=== PATIENT | female | born 1960 | race Two or more races ===

== ENCOUNTER 2025-03-03 18:52 | Emergency (ER) | payer MEDICAID, SELFPAY ==
[2025-03-03 19:51] VITALS: BP 163/68; PULSE 78; RESP 20; TEMP 36.6; O2SAT 96
--- NOTE | 2025-03-03 19:59 | XR_ITS ---
Examination: Abdomen AP single view Technique: AP portable supine abdomen, single view Exam date and time: March 03, 2025, 2005 hrs. Indications: No bowel movement beginning 2 days ago. Findings: Large amounts of air and stool throughout the entire colon No obstruction No free air Prominent osteopenia Impression: Large amounts of stool throughout the entire colon
--- NOTE | 2025-03-03 22:07 | PD.EDADULT ---
ED General RME/HPI General Chief complaint: General Adult/Misc Complain Stated complaint: NO BM X 2 DAYS Time Seen by Provider: 03/03/25 19:29 Arrival date/time: 03/03/25 18:52 This is a case of 64-year-old female who have history of external hemorrhoids came in in the emergency room due to constipation and rectal pain patient states that she has no bowel movement for 2 days but denies any abdominal pain nausea vomiting or any diarrhea no fever or chills no rectal bleeding no blood in stool persistence of the symptoms this patient decided to sought consult here in the emergency room Limitations: no limitations Related Data Home Medications ?Medication ?Instructions ?Recorded ?Confirmed omeprazole 20 mg tablet,delayed 20 mg PO QDAY 12/05/18 12/05/18 release Previous Rx's ?Medication ?Instructions ?Recorded bisacodyl 10 mg rectal suppository 10 mg AZ QDAY PRN constipation #12 03/03/25 (Dulcolax (bisacodyl)) ea hydrocortisone acetate 25 mg 25 mg AZ BID #12 ea 03/03/25 rectal suppository (Anusol-HC) polyethylene glycol 3350 17 17 g PO QDAY PRN constipation #119 03/03/25 gram/dose oral powder (Miralax) grams Allergies Allergy/AdvReac Type Severity Reaction Status Date / Time No Known Allergies Allergy Verified 03/03/25 18:57 Review of Systems Review of Systems Systems Reviewed: All systems reviewed, normal except as documented Constitutional Constitutional: Reports system reviewed and no additional complaints, except as documented and Reports as per HPI ENT Ears, Nose, Mouth, and Throat: Denies dysphagia and Denies odynophagia Cardiovascular Cardiovascular: Reports system reviewed and no additional complaints, except as documented and Reports as per HPI Respiratory Respiratory: Reports system reviewed and no additional complaints, except as documented and Reports as per HPI Gastrointestinal Gastrointestinal: Reports system reviewed and no additional complaints, except as documented, Reports as per HPI, Denies abdominal pain, Denies belching, Denies bloating, Denies change in bowel habits, Denies change in stool character, Denies coffee ground emesis, Reports constipation, Denies cramping, Denies diarrhea, Denies dyspepsia, Denies dysphagia, Denies early satiety, Denies excessive flatus, Denies fecal incontinence, Denies heartburn, Denies hematemesis, Denies hematochezia, Denies loose stools, Denies melena, Denies nausea, Denies odynophagia, Denies tenesmus and Denies vomiting Musculoskeletal Musculoskeletal: Reports system reviewed and no additional complaints, except as documented and Reports as per HPI Neurologic Neurologic: Reports system reviewed and no additional complaints, except as documented and Reports as per HPI Past Medical History Past Medical History NEUROLOGIC: Negative Seizures CARDIAC: Negative Congestive Heart Failure RESPIRATORY: Negative Chronic Obstructive Pulmonary Disease (COPD) GASTROINTESTINAL: Positive Gastroesophageal Reflux Disease GENITOURINARY: Negative Renal Disease ENDOCRINE: Negative Diabetes Mellitus Type 1 or Diabetes Mellitus Type 2 OTHER HISTORY: Negative Blood Transfusions, Blood Transfusion Reaction or Anesthesia Reactions Surgical History SURGICAL: Positive Section Social History SMOKING STATUS: Never smoker ED Exam General Limitations: Present no limitations General appearance: Present alert, in no apparent distress and other (Patient is awake alert oriented not in distress nontoxic looking well-hydrated well-nourished) Head Head exam: Present atraumatic, normocephalic and normal inspection Eye Eye exam: Present normal appearance, PERRL and EOMI ENT ENT exam: Present normal exam, normal oropharynx and mucous membranes moist Neck Neck exam: Present normal inspection, full ROM and trachea midline; Absent tenderness, meningismus, lymphadenopathy or thyromegaly Chest Chest inspection: Present normal inspection and symmetric chest wall rise Respiratory Respiratory exam: Present normal lung sounds bilaterally; Absent respiratory distress, wheezes, stridor, accessory muscle use or prolonged expiratory phase Cardiovascular Cardiovascular exam: Present regular rate, normal rhythm and normal heart sounds; Absent bradycardia, tachycardia, irregular rhythm, systolic murmur or diastolic murmur Abdominal Exam Abdominal exam: Present soft and normal bowel sounds; Absent distention, tenderness, guarding, rebound, rigidity, diminished bowel sounds, hyperactive bowel sounds, hypoactive bowel sounds, organomegaly, psoas sign, obturator sign, Giles's sign, Rovsing's sign, tenderness at McBurney's Point, ascites or hernia Rectal Exam Rectal exam: Present normal inspection, normal rectal tone and hemorrhoids (External hemorrhoid 6 o'clock position); Absent decreased rectal tone, heme (-) stool, heme (+) stool, black stool, bloody stool, fecal impaction, mass or tenderness Extremities Exam Extremities exam: Present normal inspection and full ROM Back Exam Back exam: Present normal inspection and full ROM Neurological Exam Neurological exam: Present alert, oriented X3, CN II-XII intact, normal gait and reflexes normal; Absent motor sensory deficit Psychiatric Psychiatric exam: Present normal affect and normal mood Skin Skin exam: Present warm, dry, intact and normal color Course Quality Measures none Orders Category Date Time Status KUB [XR abdomen 1V] Stat Exams 03/03/25 19:59 Completed Vital Signs Vital signs: Vital Signs Temperature 97.8 F 03/03/25 19:51 Pulse Rate 78 03/03/25 19:51 Respiratory Rate 20 03/03/25 19:51 Blood Pressure 163/68 H 03/03/25 19:51 Pulse Oximetry (%) 96 03/03/25 19:51 Oxygen Delivery Method Room Air 03/03/25 19:51 Oxygen saturation is 96% in room air Discharge Plan Plan Patient Disposition: HOME (Self Care) Patient condition on transfer: Stable Prescriptions/Referrals Prescriptions/Med Rec: New hydrocortisone acetate [Anusol-HC] 25 mg suppository 25 mg AZ BID Qty: 12 0RF bisacodyl [Dulcolax (bisacodyl)] 10 mg suppository 10 mg AZ QDAY PRN (Reason: constipation) Qty: 12 0RF polyethylene glycol 3350 [Miralax] 17 gram/dose powder 17 g PO QDAY PRN (Reason: constipation) Qty: 119 0RF Rx Instructions: Mix 17 g of MiraLAX to 8 ounces of orange juice or water and take it daily as needed for constipation No Action omeprazole 20 mg Tablet,Delayed Release (Dr/Ec) 20 mg PO QDAY Referrals: Bassam Schneider PA-C [Primary Care Provider] - In 1 week Problem List Clinical Impression: Constipation, External hemorrhoids Patient/Caregiver Discharge Instructions Education Materials: Eating a High-Fiber Diet, ED Constipation (Adult), ED Hemorrhoids Additional Instructions: Follow-up with your primary care physician in 2 days for reevaluation and to be referred to recreation professor for for further evaluation and treatment of your constipation and external hemorrhoid recurrence persistent worsening symptoms or any emergent condition call 911 or go to the nearest emergency room take your medication as directed high-fiber diet keep hydrated Pedialyte Gatorade for hydration warm sitz bath's for your external hemorrhoids is advised Print Language: Mongolian Stand Alone Forms: Gina Award Info., Patient Portal Info Letter PA/PUBLIC [employer]AF[employer]Y [employer]ICE Supervising Physician PA/[employer]AF[employer] Supervising Physician: Dr. Arreaga MDM Narrative [facility] hospital course (for use when minimal MDM required): This is a case of 64-year-old female who have history of external hemorrhoids came in in the emergency room due to constipation and rectal pain patient states that she has no bowel movement for 2 days but denies any abdominal pain nausea vomiting or any diarrhea no fever or chills no rectal bleeding no blood in stool persistence of the symptoms this patient decided to sought consult here in the emergency room physical examination patient is awake alert oriented not in distress nontoxic looking well-hydrated well-nourished abdominal exam is benign nonsurgical no guarding no rebound no rigidity no tenderness normal active bowel sounds negative psoas negative straight or negative Rovsing's negative Bi's negative Giles sign negative CVA tenderness patient rectal exam noted no fissure but with external hemorrhoid noted on the 6 o'clock position no lesion noted no redness the rest of the physical examination and neurological exam is normal and unremarkable x-ray of the abdomen KUB noted to have large stool on the colon but no intestinal obstruction at this time patient will be discharged home in stable condition patient was discharged with MiraLAX and Dulcolax suppository for constipation and Anusol for rectal pain or external hemorrhoids she was advised to follow-up with PCP to be referred to recreation professor for constipation and external hemorrhoid for any worsening symptoms or any emergent concerns she will return to the emergency room immediately or call 911 high fiber diet and hydration is also advised Patient was discharged with comfortable condition walking with stable gait. Patient verbalized no further complains explained diagnosis and answered patient question. Patient is comfortable with the proposed management plan including the need to follow up with his/her primary care physician and any specialist if applicable Discussed patient for any urgent condition or worsening sx, He/She needed to go to emergency room immediately or call 911. Patient acknowledge the responsibility to follow up as instructed and to monitor her/his symptoms. For any persistence of the symptoms for more than 3-5 days return precaution advised. Discussed the result of the test and was given printed discharge instruction Medical Records reviewed [facility] Meds/Rx considered, not ordered describe: Given Labs/Rad/Tests considered, not ordered Describe: Reviewed Chronic Illness/Social Conditions which may negatively complicate care or outcome(s)-explain: None or not applicable EKG EKG not done Labs Lab(s) Interpretation(s): Reviewed Imaging Imaging Interpretation(s): Reviewed Medication Administration(s) Given Diagnosis Differential Diagnosis ED Complaint MDM: Constipation external hemorrhoid Diagnoses ruled out and/or further discussions: Constipation external hemorrhoid
== END 2025-03-03 22:27 | disposition home or self-care (01) ==
PROVIDERS: Emergency Provider Emergency Medicine; PCP Physician Assistant
DX: K59.00 Constipation, unspecified (principal); K64.4 Residual hemorrhoidal skin tags
CPT/HCPCS: 74018; 99283

== ENCOUNTER 2025-05-20 10:00 | Outpatient (RCR) | payer MEDICAID, SELFPAY ==
--- NOTE | 2025-05-08 09:03 | PTNOTE_ITS ---
PT OP Initial Eval Patient Information Outpatient Physical Therapy Treatment Date: 05/08/25 Visit Reasons: PAIN RIGHT SHOULDER Medical Diagnosis: M25.511 Treatment Dx #1: R shoulder pain Start of Care: 05/08/25 Date of Onset: 2 yrs ago Smoking Status Smoking Status: Never smoker Initial Assessment Subjective: Pt is 64 yr old honduran speaking female who reports R shoulder pain x2 yrs that has gradually increased. Now she reports weakness with lifting objects and eating due to weakness holding the UE up. Increased pain with reaching, doing dishes and HH chores and the pain interrupts sleep. PMH: DM Imaging: Xray with provider Pt goal: less R shoulder pain to do HH chores and reach up Objective: R shoulder AROM: ? FF: 135 deg ? Abd: 95 deg ? ER: 65 deg ? HBB: to R glute with pain ? Strength: 3+/5 in all planes ? PROM: end-range pain with capsular tightness ? Full can: positive ? Empty can: positive ? Taryn Muller: positive ? Castro's: positive Drop arm: positive Assessment: Pt presentation consistent with RC tendinopathy with positive impingement testing. Pt may benefit from skilled therapy but rehab potential is poor to meet goals. PT recommends further diagnostic imaging of R shoulder such as MRI. Short Term and Document Photographer Goals 1. Ind with HEP ? 2. Improved AROM of R shoulder to at least 135 deg FF, 125 deg abduction and 90 deg ? ER ? 3. Improved HBB ROM to L3 ? 4. Pt will reach OH x10 with <=4/10 pain Treatment Plan 1. Manual therapy ? 2. Therex ? 3. Modalities as indicated, moist heat pack, ice, electrical stimulation Frequency and Duration: 1-2x a week for 4 visits plus the evaluation Certification Dates: 05/08/25 to 08/06/25 Procedure Charges OP PT Eval Mod Complex 30 minutes: Yes
--- NOTE | 2025-05-13 16:44 | PT.ODAYNRPT ---
PT Outpatient Daily Note OP Daily Note Outpatient Physical Therapy Treatment Date: 05/13/25 Visit Reasons: PAIN RIGHT SHOULDER Subjective: Same as time of evaluation Objective: See F/S for therex EDGARP x5' Assessment: Moderate tissue irritability limits R shoulder ROM with AAROM therex Plan: Continue per POC Length of Time (minutes) of Treatment: 30 Minutes Procedure Charges Therapeutic Exercise 30 minutes: Yes
--- NOTE | 2025-05-15 14:11 | PT.ODAYNRPT ---
PT Outpatient Daily Note OP Daily Note Outpatient Physical Therapy Treatment Date: 05/15/25 Visit Reasons: PAIN RIGHT SHOULDER Subjective: Same as time of evaluation Objective: See F/S for therex MHP x5' Assessment: Moderate tissue irritability limits R shoulder ROM with AAROM therex Plan: Continue per POC Length of Time (minutes) of Treatment: 30 Minutes Procedure Charges Therapeutic Exercise 30 minutes: Yes
--- NOTE | 2025-05-20 13:25 | PT.ODS1RPT ---
PT OP Progress/Discharge Note Date of Service: 05/20/25 Progress Note/DC Note Progress Note/Discharge Note: DC Note Patient Information Visit Reasons: PAIN RIGHT SHOULDER Service Continue Service or Discharge: Discharge Discharge Date: 05/20/25 Status Subjective: High pain after last visit in the R shoulder that didn't let her sleep Objective: R shoulder AROM: FF: 95 deg Abd: 90 deg ER: 65 deg Strength: 3-/5 in all planes Assessment: Pt has attended the eval and 3/4 Rx sessions with limited progress with therapy goals due to high tissue irritability of R shoulder. Pain has limited progress with goals. PT recommends further diagnostic imaging of R shoulder such as MRI. Plan: D/C Procedure Charges Therapeutic Exercise 30 minutes: Yes
== END 2025-05-28 23:59 | disposition home or self-care (01) ==
LOC: CPTX 10:00
PROVIDERS: PCP Physician Assistant; Referring Provider Physician Assistant; Visit Provider Physician Assistant
DX: M25.511 Pain in right shoulder (principal); R53.1 Weakness
CPT/HCPCS: 97110; 97162